=== PATIENT | male | born 1970 | race African-American/Black ===

== ENCOUNTER 2021-07-29 21:51 | Inpatient (IN) | payer MEDICAID ==
[~2021-07-29] VITALS: Ht 193 cm; Wt 93.0 kg
[2021-07-29] MEDS ORDERED: CEFAZOLIN 2 GM in IV D5W 100 ML IV ONE (22:30)
[2021-07-29] MEDS ORDERED: IV NS 0.9% 1,000 ML IV ONE (22:30)
[2021-07-29] MEDS ORDERED: VANCOMYCIN 1 GM in IV D5W 250 ML IV ONE (22:30)
[2021-07-29] MEDS ORDERED: MORPHINE SULFATE INJ 2 MG/ML DISP.SYRIN IV ONE (22:30)
--- NOTE | 2021-07-29 22:30 | NUR ---
pt came in c/o back head abscess x1 wk.pt a/ox4.on monitor vss.
[2021-07-29] MEDS ORDERED: VANCOMYCIN 1 GM VIAL ONE (23:06)
[2021-07-29] MEDS ORDERED: MORPHINE SULFATE INJ 2 MG/ML DISP.SYRIN ONE (23:07)
[2021-07-29] MEDS ORDERED: IOHEXOL-300 100 ML VIAL IV ONE (23:23)
[2021-07-29] MEDS ORDERED: IV NS 0.9% 250 ML IV ONE (23:23)
[2021-07-29] MEDS ORDERED: CT SWABBABLE VALVE TRANS SET 1 EA INFUS.SET MC ONE (23:23)
[2021-07-29 23:30] LABS: BASOPHILS # (AUTO) 0.2 K/uL (0.0-0.2); BASOPHILS % (AUTO) 0.8 % (0.0-2.0); EOSINOPHILS % (AUTO) 1.3 % (0.0-6.0); HEMATOCRIT 42 % (39-51); HEMOGLOBIN 14.6 g/dL (13.5-17.5); LYMPHOCYTES # (AUTO) 2.4 K/uL (0.8-4.8); LYMPHOCYTES % (AUTO) 11.9 % (20.0-44.0); MEAN CORPUSCULAR HGB CONC 35 g/dl (31.0-36.0); MEAN CORPUSCULAR VOLUME 82 fL (80-96); MONOCYTES # (AUTO) 1.9 K/uL (0.1-1.30); MONOCYTES % (AUTO) 9.1 % (2.0-12.0); NEUTROPHILS # (AUTO) 15.8 K/uL (1.8-8.9); NEUTROPHILS % (AUTO) 76.9 % (43.0-81.0); PLATELET COUNT (AUTO) 358 K/uL (150-450); RED BLOOD CELL COUNT(AUTO) 5.13 MIL/uL (4.5-6.0); WHITE BLOOD COUNT (AUTO) 20.5 K/uL (4.3-11.0)
[2021-07-29] MEDS ORDERED: CLINDAMYCIN 600 MG in IV D5W 100 ML IV ONE (23:30)
[2021-07-29 23:54] LABS: ALANINE AMINOTRANSFERASE 26 U/L (12-78); ALBUMIN 2.9 g/dL (3.4-5.0); ALKALINE PHOSPHATASE 107 U/L (46-116); ASPARTATE AMINOTRANSFERASE 16 U/L (15-37); BILIRUBIN,DIRECT 0.1 mg/dL (0.0-0.2); BILIRUBIN,TOTAL 0.5 mg/dL (0.2-1.0); CALCIUM, SERUM 8.1 mg/dL (8.5-10.1); CARBON DIOXIDE 29 mmol/L (21-32); CHLORIDE 95 mmol/L (98-107); CREATININE 1.1 mg/dL (0.6-1.3); GLUCOSE 156 mg/dL (74-106); POTASSIUM 3.8 mmol/L (3.5-5.1); SODIUM SERUM 134 mmol/L (136-145); TOTAL PROTEIN, SERUM 8.2 g/dL (6.4-8.2); UREA NITROGEN, BLOOD 6 mg/dL (7-18)
[2021-07-30] MEDS ORDERED: CLINDAMYCIN 900 MG/6 ML VIAL ONE (00:18)
[2021-07-30] MEDS ORDERED: IV NS 0.9% 2,000 ML IV ONE (01:30)
[2021-07-30] MEDS ORDERED: ACETAMINOPHEN 325 MG TABLET PO PRN ×2 (02:00→09:00)
[2021-07-30] MEDS ORDERED: ENOXAPARIN SODIUM 40 MG/0.4 ML DISP.SYRIN SQ SCH ×2 (02:00→09:00)
[2021-07-30] MEDS ORDERED: ONDANSETRON HCL/PF 4 MG/2 ML VIAL IVP PRN ×2 (02:00→09:00)
[2021-07-30] MEDS ORDERED: MAGNESIUM HYDROXIDE 30 ML UDC PO PRN ×2 (02:00→09:00)
[2021-07-30] MEDS ORDERED: HYDROCODONE/APAP 5/325MG TABLET PO PRN ×2 (02:00→09:00)
[2021-07-30] MEDS ORDERED: MAG HYDROX/AL HYDROX/SIMETH 30 ML UDC PO PRN ×2 (02:00→09:00)
[2021-07-30 02:08] LABS: BILIRUBIN,URINE NEGATIVE (NEGATIVE); COLOR,URINE YELLOW (YELLOW); LEUKOCYTE ESTERASE ,URINE NEGATIVE (NEGATIVE); NITRITE, URINE NEGATIVE (NEGATIVE); PROTEIN,URINE NEGATIVE (NEGATIVE); UGLUCOSE NEGATIVE (NEGATIVE); UROBILINOGEN,URINE 0.2 EU/dL (0.2)
[2021-07-30 02:25] LABS: BACTERIA,URINE Few /HPF (None Seen); RBC,URINE 0-2 /HPF (0-2); SQUAMOUS EPITHELIAL CELL,UR Few /HPF (None Seen)
[2021-07-30] MEDS ORDERED: ZOSYN IVPB 3.375 G in IV D5W 50ml IV ONE (02:30)
[2021-07-30] MEDS ORDERED: ENOXAPARIN SODIUM 40 MG/0.4 ML DISP.SYRIN SQ ONE (03:34)
[2021-07-30] MEDS ORDERED: PIPERACILLIN /TAZOBACTAM 3.375 G VIAL IV ONE (03:35)
[2021-07-30] MEDS: IV NS 0.9% 1,000 ML IV PRN ×2 (03:46→16:32)
[2021-07-30 04:16] LABS: ALBUMIN 2.4 g/dL (3.4-5.0); BILIRUBIN,DIRECT 0.1 mg/dL (0.0-0.2); BILIRUBIN,TOTAL 0.4 mg/dL (0.2-1.0); TOTAL PROTEIN, SERUM 6.9 g/dL (6.4-8.2)
--- NOTE | 2021-07-30 04:32 | NUR ---
CALLED FOR COVID SWAB
--- NOTE | 2021-07-30 04:41 | NUR ---
CALLED FOR COVID SWAB
--- NOTE | 2021-07-30 06:20 | NUR ---
CALLED FOR COVID SWAB
[2021-07-30 06:22] LABS: BASOPHILS # (AUTO) 0.1 K/uL (0.0-0.2); BASOPHILS % (AUTO) 0.4 % (0.0-2.0); EOSINOPHILS % (AUTO) 1.6 % (0.0-6.0); HEMATOCRIT 37 % (39-51); LYMPHOCYTES # (AUTO) 2.3 K/uL (0.8-4.8); LYMPHOCYTES % (AUTO) 11.5 % (20.0-44.0); MEAN CORPUSCULAR HGB CONC 35 g/dl (31.0-36.0); MEAN CORPUSCULAR VOLUME 81 fL (80-96); MONOCYTES # (AUTO) 1.9 K/uL (0.1-1.30); MONOCYTES % (AUTO) 9.5 % (2.0-12.0); NEUTROPHILS # (AUTO) 15.7 K/uL (1.8-8.9); PLATELET COUNT (AUTO) 342 K/uL (150-450); WHITE BLOOD COUNT (AUTO) 20.3 K/uL (4.3-11.0)
[2021-07-30 07:23] LABS: CREATININE 1.1 mg/dL (0.6-1.3); POTASSIUM 3.3 mmol/L (3.5-5.1)
[2021-07-30] MEDS: VANCOMYCIN 1 GM in IV D5W 250 ML IV SCH ×2 (08:56→17:11)
[2021-07-30] MEDS ORDERED: Z GUARD REMEDY 4 OZ OINT TP PRN (09:00)
[2021-07-30] MEDS ORDERED: IV NS 0.9% 1,000 ML IV PRN (09:00)
[2021-07-30] MEDS ORDERED: TEMAZEPAM 15 MG CAPSULE PO PRN (09:00)
--- NOTE | 2021-07-30 09:31 | NUR ---
LOVENOX 40 MG DUE AT 0900 NOT ADMINISTERED BECAUSE THE PATIENT ALREADY RECEIVED LOVENOX 40 MG 5 HOURS AGO.
[2021-07-30] MEDS: PANTOPRAZOLE 40 MG TABLET.DR PO SCH (09:33)
[2021-07-30] MEDS ORDERED: PANTOPRAZOLE 40 MG VIAL ONE (09:33)
--- NOTE | 2021-07-30 09:40 | NUR ---
WOUND CARE CONSULT: PT SEEN FOR POSTERIOR SCALP ABSCESS WITH DR GARY. ORDER RECEIVED FOR DRY DRESSING. WILL SEE PRN.
[2021-07-30] MEDS ORDERED: POTASSIUM CHLORIDE 20 MEQ TAB.PRT.SR PO SCH (11:00)
[2021-07-30] MEDS: PIPERACILLIN /TAZOBACTAM 3.375 G in IV D5W 100 ML IV SCH (11:00)
[2021-07-30] MEDS ORDERED: POTASSIUM CHLORIDE 20 MEQ TAB.PRT.SR PO ONE (11:24)
[2021-07-30] MEDS ORDERED: PIPERACILLIN /TAZOBACTAM 3.375 G in IV D5W 50 ML IV SCH (13:00)
--- NOTE | 2021-07-30 13:16 | NUR ---
ROOM 313-2
--- NOTE | 2021-07-30 13:20 | NUR ---
REPORT GIVEN TO NURSE MARTIN FOR OLEG
--- NOTE | 2021-07-30 14:03 | NUR ---
THE PATIENT IS TAKEN TO ROOM 313-2 IN STABLE CONDITION AND PER POLICY.
[2021-07-30 14:15] VITALS: BP 164/92
--- NOTE | 2021-07-30 14:15 | NUR ---
POWER CHISEL OPERATOR NOTES PATIENT ADMITTED FROM ED. PATIENT IS A/O X4. ABLE TO AMBULATE AND MAKE NEEDS KNOWN. PATIENT WAS ORIENTED TO NEW ROOM AND EDUCATED ON USE OF CALL LIGHT FOR ASSISTANCE. NO SIGNS OF RESPIRATORY DISTRESS AT THIS TIME. NO COMPLAINT OF PAIN VERBALIZED. LAC G#18 INTACT AND PATENT. CURRENTLY STABLE WITH V/S: TEMP 98.8, HR 103, RR 20, BP 164/92, O2 SAT 96% ON RA. WILL CONTINUE TO MONITOR PATIENT.
[2021-07-30 16:00] VITALS: BP 160/90
[2021-07-30] MEDS: HYDROCODONE/APAP 10/325MG TABLET PO PRN ×2 (17:19→21:36)
--- NOTE | 2021-07-30 18:59 | NUR ---
RN CLOSING NOTES PATIENT IS RESTING IN BED, A/O X4. ABLE TO AMBULATE AND MAKE NEEDS KNOWN. NO SIGNS OF RESPIRATORY DISTRESS AT THIS TIME. NO COMPLAINT OF PAIN VERBALIZED. LAC G#18 INTACT AND PATENT WITH NS RUNNING @ 75ML/HR. ORDER FOR PATIENT TO BE NPO AFTER MIDNIGHT FOR PROCEDURE TOMORROW. PATIENT IS AWARE OF I&D AND DEBRIDEMENT PROCEDURE. CONSENTS NEED TO BE SIGNED. SAFETY PRECAUTIONS IN PLACE: BED WHEELS LOCKED, BED IN LOWEST POSITION, CALL LIGHT WITHIN REACH. WILL ENDORSE TO THE MANAGER FINE NURSE FOR OLEG.
[2021-07-30 20:41] VITALS: BP 129/70
[2021-07-30] MEDS: ENOXAPARIN SODIUM 40 MG/0.4 ML DISP.SYRIN SQ SCH (21:00)
[2021-07-31] MEDS ORDERED: VANCOMYCIN 1 GM VIAL ONE (01:47)
[2021-07-31] MEDS: VANCOMYCIN 1 GM in IV D5W 250 ML IV SCH ×3 (01:48→18:45)
[2021-07-31] MEDS: PANTOPRAZOLE 40 MG TABLET.DR PO SCH (07:30)
--- NOTE | 2021-07-31 07:30 | NUR ---
RN OPENING NOTES PATIENT IS IN BED WITH EYES CLOSED, ABLE TO BE WAKEN, A/O X4. ABLE TO AMBULATE AND MAKE NEEDS KNOWN. EQUAL CHEST EXPANSION WITH NO SIGNS OF RESPIRATORY DISTRESS AT THIS TIME. NO COMPLAINT OF PAIN VERBALIZED. LAC G#18 INTACT AND PATENT WITH NS RUNNING @ 75ML/HR. PATIENT REMAINS NPO FOR PROCEDURE TODAY. SAFETY PRECAUTIONS IN PLACE: BED WHEELS LOCKED, BED IN LOWEST POSITION, CALL LIGHT WITHIN REACH. WILL CONTINUE TO MONITOR PATIENT.
[2021-07-31 07:31] LABS: BASOPHILS # (AUTO) 0.1 K/uL (0.0-0.2); BASOPHILS % (AUTO) 0.3 % (0.0-2.0); EOSINOPHILS % (AUTO) 2.8 % (0.0-6.0); HEMATOCRIT 36 % (39-51); HEMOGLOBIN 12.4 g/dL (13.5-17.5); LYMPHOCYTES # (AUTO) 2.2 K/uL (0.8-4.8); LYMPHOCYTES % (AUTO) 10.9 % (20.0-44.0); MEAN CORPUSCULAR HGB CONC 34 g/dl (31.0-36.0); MEAN CORPUSCULAR VOLUME 81 fL (80-96); MONOCYTES # (AUTO) 1.8 K/uL (0.1-1.30); MONOCYTES % (AUTO) 9.1 % (2.0-12.0); NEUTROPHILS # (AUTO) 15.3 K/uL (1.8-8.9); NEUTROPHILS % (AUTO) 76.9 % (43.0-81.0); PLATELET COUNT (AUTO) 371 K/uL (150-450); RED BLOOD CELL COUNT(AUTO) 4.52 MIL/uL (4.5-6.0); WHITE BLOOD COUNT (AUTO) 19.9 K/uL (4.3-11.0)
--- NOTE | 2021-07-31 07:54 | NUR ---
RN NOTES PT REMAINS NPO FOR PROCEDURE. WILL HOLD [phone] PO PROTONIX.
[2021-07-31 07:59] LABS: CALCIUM, SERUM 9.3 mg/dL (8.5-10.1); POTASSIUM 3.9 mmol/L (3.5-5.1)
[2021-07-31 08:00] VITALS: BP 125/79
[2021-07-31] MEDS ORDERED: LIDOCAINE HCL/MPF 1% 30 ML VIAL IJ ONE (08:32)
[2021-07-31] MEDS ORDERED: BUPIVACAINE MPF W/EPI 0.25% 30 ML VIAL ONE (08:32)
[2021-07-31] MEDS ORDERED: BACITRACIN ZINC OINT (15 GM) 15 GM TUBE TP ONE (08:32)
--- NOTE | 2021-07-31 10:45 | NUR ---
RN NOTES PATIENT TRANSFERRED DOWN TO OR FOR PROCEDURE.
[2021-07-31] MEDS ORDERED: MIDAZOLAM HCL 2 MG/2ML VIAL ONE (10:55)
[2021-07-31] MEDS ORDERED: HYDROMORPHONE INJ 2 MG/ML DISP.SYRIN ONE (10:55)
[2021-07-31] MEDS: IV NS 0.9% 1,000 ML IV PRN (12:37)
[2021-07-31 12:45] VITALS: BP 118/66
--- NOTE | 2021-07-31 12:45 | NUR ---
RN MS NOTES RECEIVED PT FROM O.R. STAFF XENA RN VIA BED, PT IS SLEEPY BUT EASILY AROUSABLE, NO COMPLAINT OF PAIN AT THIS TIME, RESPIRATIONS NORMAL, POST OP ORDERS RECEIVED FROM MD, NOTED AND CARRIED OUT, VITALS TAKEN AND RECORDED, BP 118/66, TEMP 97.8, RR 17 HR 78, O2 SAT OF 95% ON ROOM AIR, DRESSING TO POSTERIOR NECK INTACT AND DRY, NO BLEEDING NOTED, WILL CONTINUE TO MONITOR.
[2021-07-31] MEDS: IV LR 1000 ML 1,000 ML IV PRN (13:14)
--- NOTE | 2021-07-31 14:56 | NUR ---
SS Consult: SS consult for asses for pt.s discharge plan. Pt. Is a 51-year-old male. Pt. demonstrates adequate insight to the reason for hospitalization. Per pt., he was brought to hospital by his friend, Nikhil. Pt. was oriented x3, alert, and cooperative. During interview, pt. was capable of following directions, made appropriate eye-contact, and appeared groomed. Pt.s speech was at a normal rate. Pt.s mood was elevated. SW explored pt.s hx of mental health and substance abuse. Pt. reported hx of mental health, substance abuse. Per pt., he does marijuana and methamphetamine occasionally. Pt. denies suicidal or homicidal ideation. Pt. denies auditory hallucinations, visual hallucinations, paranoia, or delusions. SW explored pt.s living situation. Per pt., he lives in his van parked outside by [employer] [[address] [place] [address]]. Pt. stated that he feels safe living in his van and has the right equipment to take care of self. For example, a portal toilet. Pt. expressed that he wants to go back to his van. He stated that if he cannot leave then he will leave AMA. Pt.s nurse is well aware. Plan: SW provided available homeless resources and pt. reject interest at this time. Once discharge, per pt., he will return to his van. Pt. stated that his friend Nikhil will pick him up.
[2021-07-31 16:00] VITALS: BP 123/78
--- NOTE | 2021-07-31 19:27 | NUR ---
RN CLOSING NOTES PATIENT IS IN BED A/O X4. ABLE TO AMBULATE AND MAKE NEEDS KNOWN. NO SIGNS OF RESPIRATORY DISTRESS AT THIS TIME. NO COMPLAINT OF PAIN VERBALIZED. LAC G#18 INTACT AND PATENT WITH LR @ 100ML/HR. STARTED ANTIBIOTIC TREATMENT. SAFETY PRECAUTIONS IN PLACE: BED WHEELS LOCKED, BED IN LOWEST POSITION, CALL LIGHT WITHIN REACH. WILL ENDORSE TO THE ADVERTISING REPRESENTATIVE NURSE FOR OLEG.
--- NOTE | 2021-07-31 19:30 | NUR ---
MS RN OPENING NOTE RECEIVED PATIENT IN BED USING ELECTRONIC DEVICE. A/OX4. NO S/S OF APPARENT DISTRESS ON ROOM AIR. NO C/O PAIN AT THIS TIME. IV VANCO STILL RUNNING AT THIS TIME @250ML/HR. NO NEEDS AT THIS TIME. SAFETY IN PLACE. WILL CONTINUE WITH PATIENT CARE PLAN.
[2021-07-31 20:00] VITALS: BP 111/74
[2021-07-31] MEDS: ENOXAPARIN SODIUM 40 MG/0.4 ML DISP.SYRIN SQ SCH (21:48)
--- NOTE | 2021-07-31 22:00 | NUR ---
MS RN NOTE PATIENT ASKING TO GO ON A SMOKE BREAK. MADE CHARGE NURSE AWARE, PER FELIX IT IS OKAY LONG HE IS ACCOMPANIED. PATIENT ADAMANT EVEN WITH PATIENT TEACHING ABOUT SMOKING IS BAD FOR HIS ABSCESS ESPECIALLY HIS S/P DEBRIDEMENT. PATIENT VERY PASSIVE AND PER PATIENT HE JUST NEEDS 1 SMOKE BREAK AND HE HAD NOT HAD ANY CIGARETTE TODAY. CALLED SECURITY TO ACCOMPANY PATIENT. SECURITY KERWIN ACCOMPANIED PATIENT.
[2021-08-01] MEDS: VANCOMYCIN 1 GM in IV D5W 250 ML IV SCH ×3 (00:09→16:13)
[2021-08-01] MEDS: IV LR 1000 ML 1,000 ML IV PRN ×2 (06:47→20:27)
--- NOTE | 2021-08-01 06:54 | NUR ---
MS RN CLOSING NOTE PATIENT IN BED WATCHING TELEVISION. A/OX4. NO S/S OF APPARENT DISTRESS ON ROOM AIR. NO C/O PAIN. EMPTIED 2500 ML OF URINE. IV LR NEW BAG HANGED RUNNING AT 100ML/HR. DRESSING DRY AND INTACT. SAFETY KEPT IN PLACE THE WHOLE SHIFT. ALL NEEDS ATTENDED. ALL SCHEDULED MEDICATIONS ADMINISTERED. WILL ENDORSE TO MORNING SHIFT RN FOR CONTINUITY OF CARE.
--- NOTE | 2021-08-01 07:53 | NUR ---
MS RN OPENING NOTES RECEIVED PT IN BED AWAKE. ALERT AND ORIENTED X4 . NO S/SX OF DISTRESS NOTED. NO SOB. BREATHING EVEN AND UNLABORED, TOLERATING WELL ON ROOM AIR. IV LHAND INTACT AND PATENT WITH LR RUNNING @100MLS/HR. SAFETY MEASURE IN PLACE WITH BED LOCKED AND IN LOWEST POSITION, SR UP X2, CALL LIGHT PLACED WITHIN EASY REACH. WILL CONTINUE TO MONITOR PT FOR CHANGES IN CONDITION.
[2021-08-01] MEDS: PANTOPRAZOLE 40 MG TABLET.DR PO SCH (08:24)
[2021-08-01] MEDS ORDERED: DAKINS QUARTER STRENGTH (0.125%) 480 ML BOTTLE TOP STA (08:38)
--- NOTE | 2021-08-01 09:11 | NUR ---
RN NOTE MADE PHARMACY AWARE VANCOMYCIN IS NOT IN CASSETTE.
--- NOTE | 2021-08-01 09:17 | NUR ---
WOUND CARE CONSULT: PT SEEN FOR SURGICAL SITE TO POSTERIOR SCALP AREA. RECOMMENDATIONS MADE FOR WOUND CARE AND SKIN PROTECTION. DISCUSSED WITH NURSING STAFF AND PLANT OPERATIONS MANAGER. DRESSING CHANGE DONE WITH IODOFORM PACKING AFTER WOUND CLEANSED WITH QUARTER STRENGTH DAKINS, COVERED WITH ABD PAD AND SECURED WITH TAPE. PT TOLERATED WELL. MD IN AGREEMENT WITH PLAN OF CARE.
[2021-08-01 09:23] VITALS: BP 143/91
[2021-08-01] MEDS ORDERED: MENTHOL/CETYLPYRD (CEPACOL) 1 LOZ LOZENGE PO PRN (12:30)
[2021-08-01 16:00] VITALS: BP 132/79
[2021-08-01 17:42] LABS: CALCIUM, SERUM 8.5 mg/dL (8.5-10.1); CREATININE 1.2 mg/dL (0.6-1.3); POTASSIUM 3.6 mmol/L (3.5-5.1)
--- NOTE | 2021-08-01 19:30 | NUR ---
RN OPENING NOTE PATIENT IN BED, AWAKE. PATIENT IS ABLE TO MAKE NEEDS KNOWN A/O X 4. PATIENT IS ON RA, TOLERATING WELL. PATIENT'S DRESSING ON THE POSTERIOR HEAD C/D/I. PATIENT IS AMBULATORY AND STEADY, PATIENT HAS A L HAND 22 G WITH LR AT 100 ML/HR. PATIENT DOES NOT REPORT ANY PAIN AT THIS TIME. SAFETY MEASURES IN PLACE: BED LOCKED AND IN LOWEST POSITION, CALL LIGHT WITHIN REACH, SIDE RAILS UP. WILL MONITOR PATIENT CLOSELY.
--- NOTE | 2021-08-01 19:31 | NUR ---
MS RN CLOSING NOTES PT IN BED AWAKE. ALERT AND ORIENTED X4 . NO S/SX OF DISTRESS NOTED. NO SOB. BREATHING EVEN AND UNLABORED, TOLERATING WELL ON ROOM AIR. IV LHAND#22 INTACT AND PATENT WITH LR RUNNING @100MLS/HR. SAFETY MEASURE IN PLACE WITH BED LOCKED AND IN LOWEST POSITION, SR UP X2, CALL LIGHT PLACED WITHIN EASY REACH. WILL ENDORSE CONTINUITY OF CARE TO ONCOMING SHIFT.
[2021-08-01 20:00] VITALS: BP 135/90
[2021-08-01] MEDS: ENOXAPARIN SODIUM 40 MG/0.4 ML DISP.SYRIN SQ SCH (20:24)
[2021-08-02] MEDS: VANCOMYCIN 1 GM in IV D5W 250 ML IV SCH ×2 (00:48→08:16)
--- NOTE | 2021-08-02 07:23 | NUR ---
RN CLOSING NOTE PATIENT IN BED, AWAKE. PATIENT IS ABLE TO MAKE NEEDS KNOWN A/O X 4. PATIENT IS ON RA, TOLERATING WELL. PATIENT'S DRESSING CHANGED ON THE POSTERIOR HEAD, C/D/I. PATIENT HAS A L HAND 22 G WITH LR AT 100 ML/HR. PATIENT DOES NOT REPORT ANY PAIN AT THIS TIME. SAFETY MEASURES IN PLACE: BED LOCKED AND IN LOWEST POSITION, CALL LIGHT WITHIN REACH, SIDE RAILS UP. ALL NEEDS MET AND ATTENDED, ALL ORDERS CARRIED OUT. WILL ENDORSE TO DAY SHIFT NURSE FOR OLEG.
--- NOTE | 2021-08-02 07:40 | NUR ---
RN NOTES PATIENT RESTING IN BED, AWAKE AND VERBALLY RESPONSIVE, NOT IN ACUTE DISTRESS. A/O X4, ABLE TO MAKE NEEDS KNOWN. AMBULATES W/ STEADY GAIT. IV LINE INTACT AND PATENT, IVF INFUSING. SAFETY MEASURES MAINTAINED. WILL CONTINUE TO MONITOR.
[2021-08-02 07:54] LABS: CALCIUM, SERUM 8.3 mg/dL (8.5-10.1)
[2021-08-02] MEDS: PANTOPRAZOLE 40 MG TABLET.DR PO SCH (08:16)
[2021-08-02 08:18] LABS: BASOPHILS # (AUTO) 0.1 K/uL (0.0-0.2); BASOPHILS % (AUTO) 0.6 % (0.0-2.0); EOSINOPHILS % (AUTO) 5.8 % (0.0-6.0); HEMATOCRIT 35 % (39-51); LYMPHOCYTES # (AUTO) 3.8 K/uL (0.8-4.8); LYMPHOCYTES % (AUTO) 35.4 % (20.0-44.0); MEAN CORPUSCULAR HGB CONC 34 g/dl (31.0-36.0); MEAN CORPUSCULAR VOLUME 82 fL (80-96); MONOCYTES # (AUTO) 1.1 K/uL (0.1-1.30); MONOCYTES % (AUTO) 9.9 % (2.0-12.0); NEUTROPHILS # (AUTO) 5.1 K/uL (1.8-8.9); NEUTROPHILS % (AUTO) 48.3 % (43.0-81.0); PLATELET COUNT (AUTO) 460 K/uL (150-450); RED BLOOD CELL COUNT(AUTO) 4.28 MIL/uL (4.5-6.0); WHITE BLOOD COUNT (AUTO) 10.6 K/uL (4.3-11.0)
--- NOTE | 2021-08-02 08:20 | NUR ---
RN NOTES IV ATB INFUSING WELL.
[2021-08-02 08:51] VITALS: BP 115/75
--- NOTE | 2021-08-02 12:27 | NUR ---
RN NOTES PATIENT VERBALIZED THAT HE WANTS TO LEAVE AGAINST MEDICAL ADVICE; SEEN PATIENT ALREADY CHANGING INTO HIS PERSONAL CLOTHES. ADVISED PATIENT AGAINST LEAVING THE HOSPITAL AMA, EXPLAINED RISKS AND BENEFITS, BUT PATIENT INSISTED ON LEAVING BECAUSE "NO ONE IS PAYING ATTENTION TO HIM" EVEN THOUGH SURGICAL INTERVENTION AND SUPPORTIVE CARE/TREATMENT HAVE BEEN PROVIDED. DR. RODRÍGUEZ MADE AWARE. PATIENT IS A/O X4, ABLE TO MAKE NEEDS KNOWN, AND UNDERSTANDS RISKS OF LEAVING AMA. DRESSING ON POSTERIOR AREA OF THE HEAD C/D/I; OFFERED TO CHANGE DRESSING BUT PATIENT REFUSED. PATIENT ALSO REFUSED TO HAVE NAME ARMBAND REMOVED WELL AND REFUSED TO SIGN AMA FORM, EXITCARE DISCHARGE FORM, AND BELONGINGS LIST FORM. CHARGE NURSE AND MD AWARE OF PATIENT LEAVING AMA.
--- NOTE | 2021-08-02 12:49 | NUR ---
RN NOTES RISK INCIDENT REPORT DONE; Unique Id: [id number].
== END 2021-08-02 12:45 | disposition left against medical advice (07) | DRG 710 ==
LOC: ER 21:51 → TRANSITION 07-30 01:53 → TELE-TD 07-30 13:14 → TELE 07-30 13:18 → MED 07-30 15:11 → UNDODISIN 07-31 17:15
PROVIDERS: ADMIT Nurse Practitioner Acute Care; ATTEND Nurse Practitioner Acute Care
PROC: 0KB30ZZ Excision of Left Neck Muscle, Open Approach (ICD-10-PCS; principal; 2021-07-31)
PROC: 0KB20ZZ Excision of Right Neck Muscle, Open Approach (ICD-10-PCS; 2021-07-31)
DX: A41.9 Sepsis, unspecified organism (principal); L02.11 Cutaneous abscess of neck; Z59.00 Homelessness unspecified; Z20.822 Contact with and (suspected) exposure to COVID-19; F12.90 Cannabis use, unspecified, uncomplicated; F15.90 Other stimulant use, unspecified, uncomplicated; F17.200 Nicotine dependence, unspecified, uncomplicated; F41.9 Anxiety disorder, unspecified; B95.61 Methicillin susceptible Staphylococcus aureus infection as the cause of diseases classified elsewhere
CPT/HCPCS: 36415; 70460-TC; 71045-TC; 80048-TC; 80061-TC; 80076-TC; 80202-TC; 81001; 83605-TC; 83735-TC; 84100-TC; 84484-TC; 85025-TC; 85730-TC; 86803; 87040-TC; 87070-TC; 87075-TC; 87081-TC; 87086-TC; 87806; 88305-TC; A6253; A6407; C9113; G0378; J0690; J1170; J1650; J2250; J2270; J2405; J2543; J3370; J3490; J7030; J7050; J7060; J7120; Q9967

== ENCOUNTER 2021-08-14 11:39 | Emergency (ER) | payer MEDICAID ==
[~2021-08-14] VITALS: Ht 193 cm; Wt 93.0 kg
--- NOTE | 2021-08-14 12:00 | NUR ---
BIBS FOR SCALP WOUND/ABSCESS RE-CHECK,S/P I & D. DENIES PAIN. WILL CONTINUE TO MONITOR THE PATIENT.
[2021-08-14] MEDS ORDERED: AMOX-430 PO (13:15)
[2021-08-14] MEDS ORDERED: IBUP-1955 PO (13:15)
[2021-08-14 13:41] LABS: BASOPHILS # (AUTO) 0.1 K/uL (0.0-0.2); BASOPHILS % (AUTO) 1.7 % (0.0-2.0); EOSINOPHILS % (AUTO) 4.7 % (0.0-6.0); HEMATOCRIT 42 % (39-51); HEMOGLOBIN 14.4 g/dL (13.5-17.5); LYMPHOCYTES # (AUTO) 2.3 K/uL (0.8-4.8); MEAN CORPUSCULAR HGB CONC 34 g/dl (31.0-36.0); MEAN CORPUSCULAR VOLUME 81 fL (80-96); MONOCYTES # (AUTO) 0.4 K/uL (0.1-1.30); MONOCYTES % (AUTO) 5.4 % (2.0-12.0); NEUTROPHILS # (AUTO) 4.1 K/uL (1.8-8.9); NEUTROPHILS % (AUTO) 56.2 % (43.0-81.0); PLATELET COUNT (AUTO) 525 K/uL (150-450); RED BLOOD CELL COUNT(AUTO) 5.17 MIL/uL (4.5-6.0); WHITE BLOOD COUNT (AUTO) 7.3 K/uL (4.3-11.0)
--- NOTE | 2021-08-14 14:40 | NUR ---
"SS consult: SS Consult requested for wound care referral. The pt. is a 51 year old male who presents to the ED requiring Tx for posterior superficial neck abscess. VICKY met with pt. at bedside. the pt. is Alert&oriented x 4 and makes good eye contact. The pt.'s mood & affect are WNL. Pt. denies SI/HI and denies current halucinations. Pt. states he has been caring for the wound himself. Pt. states he left AMA last admission for the abcess as he needed to care for his animal and never receive referral to outpatient services. Per pt. lives in his car with his dogs and plans to return there once ready for discharge. SW provided pt. with homeless resources and pt. accepted them. Pt. signed homeless waiver and it was placed in the chart. Plan: VICKY faxed clinicals to [facility] [[address] [place] [address]] for referral. Located in: [facility] . VICKY notified pt. that he may follow up with [facility]. Pt. is agreeable. Year-round shelters: [place] [facility] [address], [place] [phone] ; [facility] [address] [place] [address]; [place] [facility] [id number] [facility] [address] Winter Shelters: SPA 2 | [facility] Address: Confidential (call for location ) Population Served: Coed # of Beds: 57 SPA 4 | [facility] Provider: [facility] Address: [address] [place] [address], [address] # of Beds: 49 Population Served: Coed SPA 6 | [facility] Provider: [facility] Address: [address] [place] [address], [address] # of Beds: 49 Population Served: Coed [facility] Provider: Xiomara Garza WILuis Angel Address: [address] [place] [address] # of Beds: 20 Population Served: Women JENNA Facility Provider: [facility] Address: [address] [facility]. [facility] [address] # of Beds: 30 Population Served: Women SPA 8 | [facility] Former Library Provider: Karla jimenez Pratibha Address: [address] [facility] [address] # of Beds: 65 Population Served: Coed Hygiene: [facility]: [address] [place] ; [facility] [address] [facility] [place] ; [facility] [address] [facility] [place] . Food Resources: [place] [facility] at [facility]- [address] [facility]; Meet Each Need with Dignity ([facility]) [address] [facility] [place]; [facility] [address]671 [facility]; [facility] [address] [facility]. Mental Health resources provided: [facility] [address] [place], [place] [phone] ; [facility] [address] [facility] [address], [place], [place] [phone] ; Oneyda Okeefe [facility] [address] [place], [place] [phone] ; [facility] [address] [place], [place] [phone] Healthcare Clinics: [facility] [address] [facility], [address] [place]. [place] ; [facility] [address] [facility] [address] [place] [address]; [facility] [address] [facility]. [place] [phone] Counseling--Outpatient [facility] [address] [facility], [address] [place], [place] [address] (Specializes in in-depth psychotherapy for emotional distress: anxiety, depression, interpersonal conflicts, life transitions, childhood abuse) [facility] [address] [place] [address] (Assist with solving problem marital difficulties, separation & divorce, aging parents, & grief, chronic & terminal illness) [facility] [address] [place] [address] (Deal with loss & grief, anxiety, marital difficulties) Homebound/Mental Health Services [address] [facility] [address] [place] [address] (Provide in-home mental services to people who are incapable of leaving their homes) [facility] of the Elderly Senior [facility] [address] [place], [place] [phone] [facility] [address] [place], [place] [phone] PSYCHIATRIC OUTPATIENT SERVICES [facility] Partial Hospitalization and Intensive Outpatient Program (Managed Care and [place] Only)[address] [facility] [phone] [facility] Partial Hospitalization and Outpatient [id number] [facility]. [address] [place], [place] [phone] [facility] Mental [facility] [id number] [facility] [address] [place], [place] [phone] [facility] Partial Hospitalization and Outpatient [id number] [place], [phone] Substance Abuse resources provided included: [facility] Substance Abuse Self-Helpline ([facility]) ; [facility] [address] [facility]. [place] [address] ; [facility] [address] [facility] [address] ; [facility] [address] [facility] [address] ; [facility] [address] [facility] [address] ; [facility] [address] [facility] [address] ; [facility] [place] [address] [facility] [address] [facility] [phone] ; [facility] Substance Abuse Helpline([facility] ; [facility] Family Counseling ; [facility]; [facility] [place]; [facility] [place]; [facility] [place]; [facility] [place]; [place]; [facility] [place]; [facility]'s [facility] [facility] [place]; Alcoholics Anonymous -[facility]; [place] ; Marijuana Anonymous -[facility]V; Narcotics Anonymous www.na.org;"
[2021-08-14 14:43] LABS: CALCIUM, SERUM 9.1 mg/dL (8.5-10.1); CREATININE 1.1 mg/dL (0.6-1.3); POTASSIUM 3.9 mmol/L (3.5-5.1)
--- NOTE | 2021-08-14 15:14 | NUR ---
Patient discharged to home in stable condition. Written and verbal after care instructions given. Patient verbalizes understanding of instruction.
[2021-08-14 15:15] VITALS: BP 132/84
--- NOTE | 2021-08-14 15:53 | NUR ---
SW received call from [facility] that they will be able to to provide wound care for the pt. Per Yamileth, she will reach out to the pt. and schedule an apt. Noted. Pt. was given information phone number,address and directions to [facility]
== END 2021-08-14 15:15 | disposition home or self-care (01) ==
LOC: ER 11:41
DX: Z48.01 Encounter for change or removal of surgical wound dressing (principal); L02.11 Cutaneous abscess of neck; Z60.2 Problems related to living alone
CPT/HCPCS: 36415; 80048-TC; 85025-TC